=== PATIENT | female | born 1950 | race Caucasian/White ===

== ENCOUNTER 2024-08-29 17:47 | Emergency (ER) | payer OTHER, SELFPAY ==
[2024-08-29] VITALS (30 sets, daily range): BP systolic 122–167; BP diastolic 54–81; PULSE 56–74; RESP 12–35; TEMP 36.3; O2SAT 85–97; BMI 36.6
--- NOTE | 2024-08-29 17:58 | DI.RAD.S_ITS ---
PROCEDURE: XR SHOULDER LT MIN 2V INDICATIONS: fall TECHNIQUE: To views of the shoulder were acquired. COMPARISON: None. FINDINGS: Bones: Dislocation of the left shoulder. No definite fracture is appreciated. No suspicious bony lesions. Visualized ribs appear intact. Soft tissues: No suspicious soft tissue calcifications. IMPRESSION: Dislocation of the left shoulder without definite fracture appreciated. Dictated by: Mckay Rios M.D. on 08/29/2024 at 18:53 Approved by: Mckay Rios M.D. on 08/29/2024 at 18:54
--- NOTE | 2024-08-29 18:15 | ED.FALL ---
HPI - Fall General Chief Complaint: Fall Stated Complaint: Fall; L shoulder, Bilateral Knee pain Time Seen by Provider: 08/29/24 17:50 History of Present Illness HPI Narrative: 73-year-old female had a trip and mechanical fall at home, fell forward onto her right knee, and was reaching out with her left arm, trying to break her fall, unclear if she was able to grasp anything, has pain to her left shoulder and her right knee. She had not hit her head. No headache, nausea or vomiting. No neck pain. No paresthesias to arms or legs. No truncal discomfort, no back pain upper mid lower. Related Data Allergies Allergy/AdvReac Type Severity Reaction Status Date / Time No Known Drug Allergies Allergy Verified 08/29/24 17:55 Exam Narrative Exam Narrative: GENERAL: Well-developed patient, in mild distress. HEAD: Atraumatic. Normocephalic. EYES: Pupils equal round and reactive. Extraocular motions intact. No scleral icterus. No injection or drainage. ENT: Nose without bleeding, purulent drainage. Throat without erythema, tonsillar hypertrophy or exudate. Airway patent. NECK: Trachea midline. Non tender CARDIOVASCULAR: Regular rate and rhythm without murmurs, gallops, or rubs. RESPIRATORY: Clear to auscultation. Breath sounds equal bilaterally. No wheezes, rales, or rhonchi. GASTROINTESTINAL: Abdomen soft, non-tender, nondistended. EXTREMITIES: Tenderness to left anterior shoulder, not along clavicle, not along mid distal humerus, or elbow forearm wrist hand fingers. Some tenderness to her right knee, medial joint line more so than lateral joint line. BACK: Nontender without deformity or crepitance. No flank tenderness. NEURO: AOx3. Motor functions grossly nonfocal SKIN: No rash or erythema of visible areas Initial Vital Signs Initial Vital Signs: Vital Signs Pulse Rate 57 L 08/29/24 17:54 Blood Pressure 167/78 H 08/29/24 17:54 Pulse Oximetry 96 08/29/24 17:54 Procedures Orthopedic Joint Reduction Joint #1: Time of procedure: 20:20 Time Out Performed: Yes Side: left Joint Reduction Location: shoulder Analgesia: procedural sedation Shoulder Technique Used (if applicable): external rotation Post-reduction neuro exam: intact Post-reduction vascular: intact Post Reduction X-Ray Obtained: Yes Post Reduction X-Ray Results: reduced Splint Applied: Yes Patient Tolerated Procedure: Well Additional Comments: IV propofol sedation, see separate note. [place] technique single attempt, external rotation adduction internal rotation, clinical reduction. Confirmed on radiographs, placed in sling. Procedural Sedation Time of procedure: 20:19 Consent signed: Yes Time out performed: Yes Indication: fracture/dislocation reduction ASA Class: I Time of Last PO Intake: 12:00 Preparation: rn cardiac applied, pulse oximeter, capnometry used, supplemental O2 applied, reversal agents at bedside and suction/airway equipment at bedside IV Propofol dose (mg): 80 ED Sedation Level: Moderate (Concious) Complications: Respiratory Depression-Repositioning Required Interventions: Airway repositioned Additional Comments: Patient tolerated procedure well, had repositioning of airway by RT at bedside. Returned to preprocedure mental status. Course Orders Ordered: ED Orders 08/29/24 17:58 XR shoulder LT 2+ views Stat 08/29/24 18:16 XR knee RT 1to2V Stat 08/29/24 19:54 XR shoulder LT 2+ views Stat Discontinued Medications Hydromorphone HCl (Hydromorphone 1 Mg Inj) 1 mg IM NOW ONE Stop: 08/29/24 18:22 Last Admin: 08/29/24 18:33 Dose: Not Given Documented By: JOSE DAVID Hydromorphone HCl (Hydromorphone 0.5 Mg Inj) 0.5 mg IV NOW ONE Stop: 08/29/24 18:26 Last Admin: 08/29/24 18:32 Dose: 0.5 mg Documented By: JOSE DAVID Ondansetron HCl (Ondansetron 4 Mg/2 Ml Inj) 4 mg IV NOW ONE Stop: 08/29/24 18:35 Last Admin: 08/29/24 18:36 Dose: 4 mg Documented By: JOSE DAVID Propofol (Propofol 200 Mg/20 Ml Vial) 200 mg IV NOW ONE Stop: 08/29/24 18:25 Last Admin: 08/29/24 19:52 Dose: 80 mg Documented By: MONIKA Tramadol HCl (Tramadol 50 Mg Prepack) 1 bottle MISC DIRECTED ONE Stop: 08/29/24 20:20 Last Admin: 08/29/24 20:34 Dose: 1 bottle Documented By: MONIKA Vital Signs Vital signs: Vital Signs - 8 hr 08/29/24 18:30 08/29/24 19:00 08/29/24 19:05 Pulse Rate 59 L 57 L 62 Respiratory Rate 17 Blood Pressure Pulse Oximetry 95 96 91 Oxygen Delivery Method Oxygen Flow Rate 08/29/24 19:10 08/29/24 19:15 08/29/24 19:20 Pulse Rate 62 64 67 Respiratory Rate 14 16 17 Blood Pressure Pulse Oximetry 93 92 94 Oxygen Delivery Method Oxygen Flow Rate 08/29/24 19:25 08/29/24 19:30 08/29/24 19:32 Pulse Rate 66 58 L Respiratory Rate 24 14 Blood Pressure 154/73 H Pulse Oximetry 93 94 Oxygen Delivery Method Oxygen Flow Rate 08/29/24 19:32 08/29/24 19:35 08/29/24 19:35 Pulse Rate 59 L 59 L Respiratory Rate 15 16 Blood Pressure 142/66 H Pulse Oximetry 93 92 Oxygen Delivery Method Oxygen Flow Rate 08/29/24 19:40 08/29/24 19:40 08/29/24 19:45 Pulse Rate 62 61 Respiratory Rate 13 19 Blood Pressure 127/54 L Pulse Oximetry 91 Oxygen Delivery Method Oxygen Flow Rate 08/29/24 19:46 08/29/24 19:46 08/29/24 19:50 Pulse Rate 59 L 66 Respiratory Rate 15 20 Blood Pressure 144/67 H Pulse Oximetry 92 93 Oxygen Delivery Method Oxygen Flow Rate 08/29/24 19:52 08/29/24 19:52 08/29/24 19:52 Pulse Rate 74 74 Respiratory Rate 18 19 Blood Pressure 130/60 130/60 Pulse Oximetry 94 94 Oxygen Delivery Method Nasal Cannula Oxygen Flow Rate 4 08/29/24 19:54 08/29/24 19:55 08/29/24 19:55 Pulse Rate 74 Respiratory Rate 35 H Blood Pressure 122/66 Pulse Oximetry 91 85 L Oxygen Delivery Method Nasal Cannula Oxygen Flow Rate 4 6 08/29/24 19:56 08/29/24 20:00 08/29/24 20:00 Pulse Rate 74 67 67 Respiratory Rate 12 17 18 Blood Pressure 122/56 L 145/75 H Pulse Oximetry 92 96 97 Oxygen Delivery Method Oxygen Flow Rate 6 08/29/24 20:01 08/29/24 20:01 08/29/24 20:05 Pulse Rate 68 67 Respiratory Rate 17 15 Blood Pressure 145/75 H 129/70 Pulse Oximetry 96 96 Oxygen Delivery Method Oxygen Flow Rate 08/29/24 20:05 08/29/24 20:05 08/29/24 20:10 Pulse Rate 68 Respiratory Rate 17 Blood Pressure 129/70 129/81 Pulse Oximetry 97 Oxygen Delivery Method Oxygen Flow Rate 08/29/24 20:10 08/29/24 20:15 08/29/24 20:15 Pulse Rate 68 71 Respiratory Rate 20 Blood Pressure 144/71 H Pulse Oximetry 95 95 Oxygen Delivery Method Oxygen Flow Rate 08/29/24 20:20 08/29/24 20:20 08/29/24 20:25 Pulse Rate 70 71 Respiratory Rate 22 16 Blood Pressure 130/60 Pulse Oximetry 96 97 Oxygen Delivery Method Oxygen Flow Rate 08/29/24 20:30 08/29/24 20:35 Pulse Rate 68 72 Respiratory Rate 19 Blood Pressure Pulse Oximetry 96 97 Oxygen Delivery Method Room Air Oxygen Flow Rate MDM - Fall Imaging Data Extremity x-ray #1: Radiologist's Impression: Close Knee X-Ray (Signed) Mckay Rios - 08/29/24 Shoulder X-Ray (Signed) Mckay Rios - 08/29/24 Launch?Image [address] [address] XRay Report Signed Patient: Ellie Mejia MR#: [id number] : 1950 Acct:[id number] Age/Sex: 73 / F Date of Service: 08/29/24 Loc: ED Accession Number: [id number] Procedure: XR knee RT 1to2V Ordering Provider: Tyron Ramirez MD PROCEDURE: XR KNEE RT 1TO2V INDICATIONS: fall/pain TECHNIQUE: 2 views of the knee were acquired. COMPARISON: None. FINDINGS: Bones: No fractures or dislocations. Degenerative changes with moderate medial compartment joint space narrowing. No suspicious bony lesions. Soft tissues: No joint effusion. No suspicious soft tissue calcifications. Prepatellar soft tissue swelling. IMPRESSION: Prepatellar soft tissue swelling. No acute osseous abnormality. If pain persists with conservative management, consider repeat x-ray in 10-14 days or cross-sectional imaging. Dictated by: Mckay Rios M.D. on 08/29/2024 at 18:54 Approved by: Mckay Rios M.D. on 08/29/2024 at 18:55 Extremity x-ray #2: Radiologist's Impression: [address] [address] XRay Report Signed Patient: Ellie Mejia MR#: [id number] : 1950 Acct:[id number] Age/Sex: 73 / F Date of Service: 08/29/24 Loc: ED Accession Number: [id number] Procedure: XR shoulder LT 2+ views Ordering Provider: Tyron Ramirez MD PROCEDURE: XR SHOULDER LT MIN 2V INDICATIONS: fall TECHNIQUE: To views of the shoulder were acquired. COMPARISON: None. FINDINGS: Bones: Dislocation of the left shoulder. No definite fracture is appreciated. No suspicious bony lesions. Visualized ribs appear intact. Soft tissues: No suspicious soft tissue calcifications. IMPRESSION: Dislocation of the left shoulder without definite fracture appreciated. Dictated by: Mckay Rios M.D. on 08/29/2024 at 18:53 Approved by: Mckay Rios M.D. on 08/29/2024 at 18:54 MDM Narrative Medical decision making narrative: 73-year-old female had ground level fall, onto her right knee, also tried to grasp with her left arm as she fell, has left shoulder pain. Screening x-ray shows anterior left shoulder dislocation without obvious fracture, formal radiology report pending. X-ray right knee still pending. IV Dilaudid. We will prepare for sedation reduction. X-ray right knee without obvious fracture. Await Radiology report. See procedure note, IV propofol sedation for closed reduction left anterior shoulder dislocation, single attempt [place] technique successful, postreduction x-ray anatomic, placed in sling postprocedure. Return to baseline preprocedure mental status. Follow up contact information for local orthopedic surgery provided. Discharged home with family. Discharge Plan Departure Patient Disposition: Home Clinical Impression: Fall from ground level, Contusion of right patella, Anterior dislocation of left shoulder Activity Restrictions/Additional Instructions: Ground level fall, right knee pain and left shoulder pain. X-rays right shoulder showed some soft tissue swelling before the patella kneecap, likely patellar soft tissue contusion, without obvious fractures. X-ray left shoulder showed anterior dislocation, IV sedation and reduction procedure tolerated well, postreduction x-rays showed anatomic position, placed in left shoulder sling. Consider close follow up with Orthopedic surgery to recheck, and to coordinate/consider physical therapy. Take Tylenol and or Motrin as needed for pain control. Return earlier to this/nearest emergency department for any change worsening symptoms or any concerns prior. We discussed advanced imaging of the right knee if there is persistence of pain, sometimes MRI study might be done if there is persistence of pain to evaluate the ligaments and other structures. We did discuss CT imaging of the knee, hold for now. Recheck in follow up. Referrals: Kamilah Perez DO [Physician, Orthopedic Surgery] Stand Alone Forms: Patient Portal/API
[2024-08-29] MEDS: HYDROMORPHONE 0.5 MG INJ IV (18:32)
[2024-08-29] MEDS: ONDANSETRON 4 MG/2 ML INJ IV (18:36)
[2024-08-29] MEDS: propofoL 200 MG/20 ML VIAL IV (19:52)
--- NOTE | 2024-08-29 19:54 | DI.RAD.S_ITS ---
PROCEDURE: XR SHOULDER LT MIN 2V INDICATIONS: post reduction TECHNIQUE: 2 views of the shoulder were acquired. COMPARISON: [facility], , XR SHOULDER LT 2+ VIEWS, 08/29/2024, 18:02. FINDINGS: Bones: Interval reduction shoulder dislocation. There is good anatomic alignment without visualized fracture. Soft tissues: No suspicious soft tissue calcifications. IMPRESSION: Interval reduction of shoulder dislocation with good anatomic alignment. Dictated by: Annie Gaston M.D. on 08/29/2024 at 20:47 Approved by: Annie Gaston M.D. on 08/29/2024 at 20:47
--- NOTE | 2024-08-29 20:07 | PC.NURSE ---
Patient needs conscious sedation to reduce left shoulder dislocation, RT Dr James Bray, Charge nurse Debi, and this RN are at bedside. Dr Ramirez administers 40mg of propofol, patient still responding and Provider administers 40mg more for a total of 8ml of propofol. Patient needing jaw thrust and 6l NC to maintain sats above 92%. Xray at bedside to take post reduction films. Patient is awake and oriented at 2000 and able to maintain sats above 92%
[2024-08-29] MEDS: TRAMADOL 50 MG PREPACK 1 BOTTLE MISC (20:34)
== END 2024-08-29 20:50 | disposition home or self-care (01) ==
PROVIDERS: Emergency Provider Emergency Medicine
DX: S43.085A Other dislocation of left shoulder joint, initial encounter (principal); S80.01XA Contusion of right knee, initial encounter; W18.30XA Fall on same level, unspecified, initial encounter
CPT/HCPCS: 23650; 73030; 73560; 96374; 96375; 99152; 99284; 99285; J1171; J2405; J2704